=== PATIENT | male | born 1995 | race Hispanic/Latino ===

== ENCOUNTER 2018-08-28 18:14 | Emergency (ER) | payer MEDICAID, OTHER ==
[2018-08-28] MEDS ORDERED: IBUPROFEN 600 MG TABLET ONE (19:18)
[2018-08-28] MEDS ORDERED: DIPHENHYDRAMINE HCL 25 MG CAPSULE ONE (19:18)
== END 2018-08-28 19:31 | disposition home or self-care (01) ==
LOC: EDH 18:14
DX: S60.467A Insect bite (nonvenomous) of left little finger, initial encounter (principal); Z98.890 Other specified postprocedural states; W57.XXXA Bitten or stung by nonvenomous insect and other nonvenomous arthropods, initial encounter; Y93.89 Activity, other specified; Y92.009 Unspecified place in unspecified non-institutional (private) residence as the place of occurrence of the external cause; Y99.8 Other external cause status
CPT/HCPCS: 99283; Q0163

== ENCOUNTER 2023-03-28 07:45 | Day surgery (SDC) | payer BC, MEDICAID ==
[2023-03-26 14:01] LABS: BASOPHILS # (AUTO) 0.05 K/uL (0.00-0.20); BASOPHILS % (AUTO) 0.7 % (0.0-5.0); EOSINOPHILS % (AUTO) 1.3 % (0.0-8.0); HEMATOCRIT 45.8 % (42-54); IMMATURE GRANULOCYTE ABSOLUTE 0.02 K/uL (0-1); LYMPHOCYTES # (AUTO) 3.1 K/uL (1.0-4.8); LYMPHOCYTES % (AUTO) 40.9 % (21.0-51.0); MEAN CORPUSCULAR HEMOGLOBIN 28.7 pg (27.0-33.0); MEAN CORPUSCULAR HGB CONC 34.3 g/dL (32.0-36.0); MEAN CORPUSCULAR VOLUME 83.7 fL (79-99); MONOCYTES # (AUTO) 0.6 K/uL (0.1-1.0); MONOCYTES % (AUTO) 8.4 % (3.0-13.0); NEUTROPHILS # (AUTO) 3.7 K/uL (1.8-7.7); NEUTROPHILS % (AUTO) 48.4 % (40.0-77.0); PLATELET COUNT (AUTO) 264 K/uL (130-400); RED BLOOD CELL COUNT(AUTO) 5.47 MIL/uL (4.50-6.20); RED CELL DISTRIBUTION WIDTH 13.1 % (11.0-15.5); WHITE BLOOD COUNT (AUTO) 7.7 K/uL (4.8-10.8)
[2023-03-26 14:15] VITALS: BP 140/86; PULSE 56; RESP 16
[~2023-03-28] VITALS: Ht 180.3 cm; Wt 103.1 kg
[2023-03-28] VITALS (18 sets, daily range): BP systolic 108–144; BP diastolic 63–81; PULSE 50–81; RESP 14–20
[2023-03-28] MEDS ORDERED: CEFAZOLIN SODIUM 2 GM VIAL ONE (08:07)
[2023-03-28] MEDS ORDERED: LACTATED RINGERS 1000ML 1,000 ML IV ONE (08:07)
[2023-03-28] MEDS ORDERED: LIDOCAINE PF 100MG/5ML (2%) SYRINGE 5ML ONE (09:01)
[2023-03-28] MEDS ORDERED: DEXAMETHASONE SOD PHOSPHATE 10MG/ML 1ML VIAL ONE (09:01)
[2023-03-28] MEDS ORDERED: SUCCINYLCHOLINE CHLORIDE 20 MG/ML 10 ML VIAL ONE (09:01)
[2023-03-28] MEDS ORDERED: GLYCOPYRROLATE 1 MG/5 ML SYRINGE ONE (09:03)
[2023-03-28] MEDS ORDERED: NEOSTIGMINE 5MG/5ML SYR IV ONE (09:03)
[2023-03-28] MEDS ORDERED: ONDANSETRON 4MG INJ ONE (09:03)
[2023-03-28] MEDS ORDERED: PROPOFOL 10 MG/ML 20ML VIAL IV ONE (09:03)
[2023-03-28] MEDS ORDERED: MIDAZOLAM HCL 1 MG/ML 2ML VIAL ONE (09:03)
[2023-03-28] MEDS ORDERED: ROCURONIUM 10MG/1ML SYR 10 MG/ML ML ONE (09:04)
[2023-03-28] MEDS ORDERED: FENTANYL CITRATE PF 50 MCG/1 ML 2ML VIAL ONE ×3 (09:04→10:22)
[2023-03-28] MEDS ORDERED: BUPIVACAINE/PF 0.25% 30ML VIAL IJ ONE (09:09)
[2023-03-28] MEDS ORDERED: BACITRACIN 28.4 GM OINT TP ONE (09:09)
[2023-03-28] MEDS ORDERED: LIDOCAINE HCL 1% 10 ML VIAL ONE (09:10)
[2023-03-28] MEDS ORDERED: BUPIVACAINE/EPI/PF 0.25% 30ML VIAL IJ ONE (10:10)
[2023-03-28] MEDS ORDERED: MEPERIDINE-PF 25 MG/ML SYG ONE (10:20)
[2023-03-28] MEDS ORDERED: BACITRACIN 1 EACH PACKET TP ONE (12:17)
== END 2023-03-28 12:35 | disposition home or self-care (01) ==
LOC: DAH 07:45
PROVIDERS: ATTEND Urology
DX: N47.1 Phimosis (principal); Z20.822 Contact with and (suspected) exposure to COVID-19; N47.5 Adhesions of prepuce and glans penis; N48.89 Other specified disorders of penis
CPT/HCPCS: 85025; 87426; 36415; 71046; 54161; A6260; A4663; J7120; J3010 ×3; J3490 ×4; J1100; J2710; J0330; J2001; J2250; J2704; J2405; J2175; J0690; A4215; A4223; A4222; A4221

== ENCOUNTER 2024-06-23 17:36 | Emergency (ER) | payer BC, MEDICAID ==
[~2024-06-23] VITALS: Ht 180.3 cm; Wt 103.0 kg
[2024-06-23] MEDS: TRIAMCINOLONE ACETONIDE 40 MG/ML 1ML VIAL IM ONE (18:47)
[2024-06-23] MEDS: ORPHENADRINE 60MG/2ML IM ONE (18:48)
[2024-06-23] MEDS: ketOROlac 30MG VIAL (30MG/ML) IM ONE (18:48)
[2024-06-23 19:56] VITALS: BP 127/80; PULSE 80; RESP 20; TEMP 97.5; O2SAT 98
== END 2024-06-23 20:41 | disposition home or self-care (01) ==
LOC: EDH 17:36
DX: M62.830 Muscle spasm of back (principal)
CPT/HCPCS: 72131; J1885; J3301; J2360